=== PATIENT | male | born 1995 | race Caucasian/White ===

== ENCOUNTER 2019-10-27 12:24 | Emergency (ER) | payer SELFPAY ==
[2019-10-27 12:37] VITALS: BP 134/82; PULSE 78; RESP 18; TEMP 36.4; O2SAT 100
--- NOTE | 2019-10-27 13:03 | ED.DENTAL ---
HPI - Dental/Oral General Chief complaint: Dental/Oral Stated complaint: Dental Time Seen by Provider: 10/27/19 12:36 Source: patient Mode of arrival: ambulatory Limitations: no limitations History of Present Illness HPI Narrative: This is a 24-year-old male that presents the emergency department for gum redness and pain x3 days. He has been doing some [id number] mouth washes with little relief and using sensitive toothpaste. Denies fever, dysphagia, or dyspnea. Related Data Allergies Allergy/AdvReac Type Severity Reaction Status Date / Time No Known Allergies Allergy Verified 10/27/19 13:04 Review of Systems Review of Systems: Narrative: CONSTITUTIONAL: Denies fever ENT: Reports dentalgia All systems reviewed & are unremarkable except as noted in HPI and below PMFSH Social History Social History (Updated 10/27/19 @ 13:05 by Nita Dimas PA-C) Smoking status: Never smoker Substance use: never Exam Narrative: Exam Narrative: GENERAL: Well-appearing, well-nourished, and in no acute distress. HEAD: Normocephalic, atraumatic. EYES: EOMI. ENT: Mucous membranes moist. Oropharynx without tonsillar hypertrophy exudate or other lesions. Lower front gingiva erythematous and irritated NECK: Supple. No adenopathy or masses. EXTREMITIES: Normal range of motion. No edema. SKIN: Warm, dry, no rash. NEURO: No focal deficits. Alert and oriented x3. PSYCH: Normal mood and affect Course Vital Signs Vital signs: Vital Signs Temperature 97.5 F L 10/27/19 12:37 Pulse Rate 78 10/27/19 12:37 Respiratory Rate 18 10/27/19 12:37 Blood Pressure 134/82 10/27/19 12:37 Pulse Oximetry 100 10/27/19 12:37 Temperature 97.5 F L 10/27/19 12:37 Pulse Rate 78 10/27/19 12:37 Respiratory Rate 18 10/27/19 12:37 Blood Pressure 134/82 10/27/19 12:37 Pulse Oximetry 100 10/27/19 12:37 MDM - Dental/Oral MDM Narrative Medical decision making narrative: Patient with evidence of gingivitis. He will be started on chlorhexidine. He is to follow-up with a dentist. He was given warnings to return to the ER Critical Care Time Critical Care Time Critical Care Time: No Discharge Plan Discharge Clinical Impression: Gingivitis Patient Disposition: Home, Self-Care Condition: Stable Instructions: Antibiotic Form, Gingivitis (ED) Additional Instructions: Return to the Emergency Department if you experience fever >101, increasing swelling and redness of your tooth, or any other symptoms that are concerning to you Take antibiotic as prescribed. Use mouth rinse twice daily. Tylenol or Ibuprofen as needed for pain. Follow up with [facility]. Dr. Jesus Penny Prescriptions: New chlorhexidine gluconate 0.12 % mouthwash 15 ml BUCCAL BID Qty: 473 RF: 0 amoxicillin 500 mg capsule 500 mg PO Q8H 7 Days Qty: 21 RF: 0 Follow-up/Referrals: PHYSICIAN,[facility] [Primary Care Provider] -
[2019-10-27 14:12] VITALS: BP 145/89; PULSE 84; RESP 20; TEMP 36.9; O2SAT 97
== END 2019-10-27 14:12 | disposition home or self-care (01) ==
PROVIDERS: Emergency Provider Emergency Medicine
DX: K05.10 Chronic gingivitis, plaque induced (principal)
CPT/HCPCS: 99283

== ENCOUNTER 2024-02-19 19:53 | Emergency (ER) | payer MEDICAID, SELFPAY ==
[2024-02-19 20:05] VITALS: BP 160/84; PULSE 74; RESP 16; TEMP 36.4; O2SAT 98
--- NOTE | 2024-02-19 20:56 | PC.NURSE ---
Pt approached triage desk stating he was just going to leave due to wait times. Pt advised to be seen at nearest ED if symptoms worsen.
== END 2024-02-19 20:56 | disposition left against medical advice (07) ==
LOC: ANHED 21:04
DX: M54.2 Cervicalgia (principal)
CPT/HCPCS: 99199